=== PATIENT | female | born 1935 | race Caucasian/White ===

== ENCOUNTER 2016-11-23 10:33 | Emergency (ER) | payer MEDICARE, OTHER | END 2016-11-23 11:12 | disposition home or self-care (01) | LOC: D.ER 10:33 | DX: R55 Syncope and collapse (principal); R04.0 Epistaxis ==

== ENCOUNTER → 2019-08-01 18:56 | Outpatient (CLI) | payer MEDICARE, OTHER | END | disposition home or self-care (01) | LOC: D.MAMMO 09:45 | PROVIDERS: ATTEND Family Medicine | DX: Z12.31 Encounter for screening mammogram for malignant neoplasm of breast (principal) ==